=== PATIENT | male | born 1965 | race Caucasian/White ===

== ENCOUNTER → 2016-05-25 | Outpatient (CLI) | payer MEDICARE, BC ==
[~2016-05-25] MED LIST: ABILIFY 10MG TA10 MG PO; AMLODIPINE5 MG PO; ATIVAN0.5 MG PO; CITALOPRAM40 MG PO; CYMBALTA; LISINOPRIL; LISINOPRIL40 MG PO; LOPRESSOR 550 MG/TAB PO; OMEPRAZOLE D/R20 MG PO; PRILOSEC 20MG20 MG PO; TOPROL XL 25MG25 MG PO; ULTRAM50 M1 PO; VIIBRYD20 MG PO
[2016-05-25 16:27] VITALS: BP 145/91
== END ==
LOC: AMSURD 15:54
DX: Z01.818 Encounter for other preprocedural examination (principal); I10 Essential (primary) hypertension; M17.12 Unilateral primary osteoarthritis, left knee

== ENCOUNTER → 2016-06-09 | Outpatient (CLI) | payer MEDICARE, BC ==
[2016-06-09] VITALS (12 sets, daily range): BP systolic 151–167; BP diastolic 95–109
--- NOTE | 2016-06-09 13:04 | NUR ---
Gabe Lawrence APRN at bedside.
== END ==
LOC: RAD 08:18 → AMSURD 08:18
DX: R06.02 Shortness of breath (principal)
CPT/HCPCS: J2060

== ENCOUNTER 2016-10-20 14:00 | Outpatient (RCR) | payer MEDICARE, BC ==
[2016-06-09 13:15] VITALS: BP 162/95
== END 2016-11-05 09:08 | disposition home or self-care (01) ==
LOC: PT 14:00
DX: M17.12 Unilateral primary osteoarthritis, left knee (principal)

== ENCOUNTER → 2016-10-23 | Outpatient (CLI) | payer MEDICARE, BC ==
[2016-06-09 13:15] VITALS: BP 162/95
== END ==
LOC: RAD 09:57
DX: M79.662 Pain in left lower leg (principal); Z98.890 Other specified postprocedural states; I97.89 Other postprocedural complications and disorders of the circulatory system, not elsewhere classified; Y83.9 Surgical procedure, unspecified as the cause of abnormal reaction of the patient, or of later complication, without mention of misadventure at the time of the procedure

== ENCOUNTER → 2017-10-12 | Outpatient (CLI) | payer MEDICARE, BC ==
[2016-06-09 13:15] VITALS: BP 162/95
[2017-10-12 13:20] LABS: URINE APPEARANCE CLEAR; URINE BILIRUBIN NEGATIVE (NEGATIVE); URINE BLOOD NEGATIVE (NEGATIVE); URINE COLOR YELLOW; URINE GLUCOSE NEGATIVE (NEGATIVE); URINE KETONE NEGATIVE (NEGATIVE); URINE LEUKOCYTE ESTERASE NEGATIVE (NEGATIVE); URINE MUCUS PRESENT (NOT PRESENT); URINE NITRATE NEGATIVE (NEGATIVE); URINE PROTEIN(semi-quant) TRACE mg/dL (NEGATIVE); URINE UROBILINOGEN NORMAL (NORMAL)
== END ==
LOC: LAB 12:03
PROVIDERS: Nurse Practitioner Family
DX: R30.0 Dysuria (principal)

== ENCOUNTER → 2017-10-18 | Outpatient (CLI) | payer MEDICARE, BC ==
[2016-06-09 13:15] VITALS: BP 162/95
== END ==
LOC: LAB 11:52
PROVIDERS: Physician Assistant
DX: R53.83 Other fatigue (principal); R63.5 Abnormal weight gain

== ENCOUNTER → 2017-10-27 | Outpatient (CLI) | payer MEDICARE, BC ==
[2016-06-09 13:15] VITALS: BP 162/95
== END ==
LOC: LAB 08:59
DX: J02.9 Acute pharyngitis, unspecified (principal)

== ENCOUNTER → 2017-12-01 | Outpatient (CLI) | payer MEDICARE, BC ==
[2016-06-09 13:15] VITALS: BP 162/95
== END ==
LOC: LAB 12:25
DX: R73.9 Hyperglycemia, unspecified (principal)

== ENCOUNTER 2017-12-09 13:00 | Outpatient (RCR) | payer MEDICARE, BC ==
[2016-06-09 13:15] VITALS: BP 162/95
== END 2017-12-09 13:30 | disposition home or self-care (01) ==
LOC: PT 13:00
DX: R29.898 Other symptoms and signs involving the musculoskeletal system (principal); M25.562 Pain in left knee; Z96.652 Presence of left artificial knee joint
CPT/HCPCS: G8978-GP; G8979-GP

== ENCOUNTER → 2018-02-16 | Outpatient (CLI) | payer MEDICARE, BC ==
[2016-06-09 13:15] VITALS: BP 162/95
== END ==
LOC: RAD 12:29
DX: M47.816 Spondylosis without myelopathy or radiculopathy, lumbar region (principal)

== ENCOUNTER 2018-04-12 08:48 | Emergency (ER) | payer MEDICARE, BC ==
[~2018-04-12] VITALS: Ht 182.9 cm; Wt 136.4 kg
[~2018-04-12 08:48] MED LIST changes: +OMEPRAZOLE40 MG PO; -PRILOSEC 20MG20 MG PO
[2018-04-12 09:24] LABS: EOS # 0.2 (0.04-0.40); EOS % 1.6 % (0.0-4.0); HEMATOCRIT 52.6 % (42.0-52.0); LYMPH# 1.7 (1.50-4.00); MEAN CELL VOLUME 89 fl (78-100); MEAN CORPUSCULAR HEMOGLOBIN 29 pg (27-31); MEAN CORPUSCULAR HGB CONC 32 g/dL (33-37); MEAN PLATELET VOLUME 10.1 fl (7.4-10.4); MONO # 0.8 (0.20-0.80); NEU # 6.7 (1.40-6.50); PLATELET COUNT 187 K/mm3 (130-400); RED BLOOD COUNT 5.94 M/mm3 (4.20-5.60); RED CELL DISTRIBUTION WIDTH 16.1 % (11.5-14.5); WHITE BLOOD COUNT 9.4 K/mm3 (4.8-10.8)
[2018-04-12] MEDS ORDERED: ZOFRAN ODT4 MG PO (09:31)
[2018-04-12] MEDS ORDERED: HYGROTON 2525 MG/TAB PO (09:32)
[2018-04-12] MEDS ORDERED: ZOLPIDEM TART10 MG PO (09:32)
[2018-04-12] MEDS ORDERED: PROVENTIL0.09 MG/A1 IH (09:33)
[2018-04-12] MEDS ORDERED: FLONASE ALLERG9.9 ML NS (09:33)
[2018-04-12] MEDS ORDERED: XYOSTED100 MG/0.5 IM (09:34)
[2018-04-12] MEDS ORDERED: MIRALAX17 GM PO (09:37)
[2018-04-12 09:43] LABS: ALBUMIN 4.7 g/dL (3.5-5.0); CALCIUM 10.9 mg/dL (8.4-10.2); POTASSIUM 4.3 mmol/L (3.6-5.0); TOTAL BILIRUBIN 0.7 mg/dL (0.2-1.3); TOTAL PROTEIN 8.1 g/dL (6.3-8.2)
[2018-04-12 11:04] VITALS: BP 166/123
[2018-04-12] MEDS ORDERED: REGLAN10 M2 PO (11:04)
[2018-04-12] MEDS ORDERED: MIRALAX119 GM PO (11:04)
[2018-04-12] MEDS ORDERED: PREDNISONE20 M1 PO (11:04)
== END 2018-04-12 11:08 | disposition home or self-care (01) ==
LOC: ED 08:48
PROVIDERS: Nurse Practitioner Primary Care
DX: J34.89 Other specified disorders of nose and nasal sinuses (principal); R11.2 Nausea with vomiting, unspecified; K59.00 Constipation, unspecified; I10 Essential (primary) hypertension; F41.9 Anxiety disorder, unspecified; F32.9 Major depressive disorder, single episode, unspecified; F40.10 Social phobia, unspecified; K21.9 Gastro-esophageal reflux disease without esophagitis; Z90.49 Acquired absence of other specified parts of digestive tract; Z98.52 Vasectomy status
CPT/HCPCS: J2550; J2765; J7030

== ENCOUNTER → 2018-07-29 | Outpatient (CLI) | payer MEDICARE, BC ==
[~2018-07-29] MED LIST changes: +FLONASE ALLERG9.9 ML NS; +HYGROTON 2525 MG/TAB PO; +MIRALAX119 GM PO; +MIRALAX17 GM PO; +PREDNISONE20 M1 PO; +PROVENTIL0.09 MG/A1 IH; +REGLAN10 M2 PO; +XYOSTED100 MG/0.5 IM; +ZOFRAN ODT4 MG PO; +ZOLPIDEM TART10 MG PO
== END ==
LOC: LAB 10:26
DX: H53.9 Unspecified visual disturbance (principal); Z86.39 Personal history of other endocrine, nutritional and metabolic disease

== ENCOUNTER → 2018-09-19 | Outpatient (CLI) | payer MEDICARE, BC ==
[~2018-09-19] VITALS: Ht 182.9 cm; Wt 144.1 kg
[2018-09-19 11:37] LABS: ALBUMIN 4.1 g/dL (3.5-5.0); POTASSIUM 4.3 mmol/L (3.5-5.1)
[2018-09-19 11:38] LABS: CALCIUM 9.1 mg/dL (8.3-10.5)
[2018-09-19 11:40] LABS: PROTHROMBIN TIME 10.4 SECONDS (9.0-12.0); TOTAL PROTEIN 7.3 g/dL (6.4-8.3)
[2018-09-19 11:41] LABS: TOTAL BILIRUBIN 0.8 mg/dL (0.2-1.2)
[2018-09-19 11:45] LABS: URINE APPEARANCE CLEAR; URINE BILIRUBIN NEGATIVE (NEGATIVE); URINE BLOOD NEGATIVE (NEGATIVE); URINE COLOR YELLOW; URINE GLUCOSE NEGATIVE (NEGATIVE); URINE KETONE NEGATIVE (NEGATIVE); URINE LEUKOCYTE ESTERASE NEGATIVE (NEGATIVE); URINE MUCUS PRESENT (NOT PRESENT); URINE NITRATE NEGATIVE (NEGATIVE); URINE PROTEIN(semi-quant) 1+ mg/dL (NEGATIVE); URINE UROBILINOGEN NORMAL (NORMAL)
[2018-09-19 11:47] VITALS: BP 138/57
[2018-09-19 11:48] LABS: EOS # 0.2 (0.04-0.40); EOS % 2.1 % (0.0-4.0); HEMATOCRIT 52.8 % (42.0-52.0); HEMOGLOBIN 16.3 g/dL (13.5-18.0); LYMPH# 1.9 (1.50-4.00); MEAN CELL VOLUME 96 fl (78-100); MEAN CORPUSCULAR HEMOGLOBIN 30 pg (27-31); MEAN CORPUSCULAR HGB CONC 31 g/dL (33-37); MEAN PLATELET VOLUME 10.3 fl (7.4-10.4); NEU # 5.4 (1.40-6.50); PLATELET COUNT 161 K/mm3 (130-400); RED BLOOD COUNT 5.51 M/mm3 (4.20-5.60); RED CELL DISTRIBUTION WIDTH 16.5 % (11.5-14.5); WHITE BLOOD COUNT 8.5 K/mm3 (4.8-10.8)
== END ==
LOC: AMSURD 11:10
PROVIDERS: Family Medicine
DX: Z01.818 Encounter for other preprocedural examination (principal); J98.11 Atelectasis

== ENCOUNTER → 2018-12-09 | Outpatient (CLI) | payer MEDICARE, BC ==
[~2018-12-09] VITALS: Ht 182.9 cm; Wt 144.1 kg
[2018-12-09 11:21] LABS: EOS # 0.2 (0.04-0.40); EOS % 1.5 % (0.0-4.0); HEMOGLOBIN 16.5 g/dL (13.5-18.0); LYMPH# 1.7 (1.50-4.00); MEAN CELL VOLUME 92 fl (78-100); MEAN CORPUSCULAR HEMOGLOBIN 28 pg (27-31); MEAN CORPUSCULAR HGB CONC 31 g/dL (33-37); MEAN PLATELET VOLUME 10.1 fl (7.4-10.4); MONO # 1.1 (0.20-0.80); NEU # 8.1 (1.40-6.50); PLATELET COUNT 159 K/mm3 (130-400); RED BLOOD COUNT 5.85 M/mm3 (4.20-5.60); RED CELL DISTRIBUTION WIDTH 16.4 % (11.5-14.5); WHITE BLOOD COUNT 11.1 K/mm3 (4.8-10.8)
[2018-12-09 11:28] LABS: POTASSIUM 4.3 mmol/L (3.5-5.1)
[2018-12-09 11:29] LABS: CALCIUM 9.6 mg/dL (8.3-10.5)
[2018-12-09 11:30] LABS: TOTAL PROTEIN 6.7 g/dL (6.4-8.3)
[2018-12-09 11:31] LABS: PROTHROMBIN TIME 10.4 SECONDS (9.0-12.0)
[2018-12-09 11:32] LABS: TOTAL BILIRUBIN 0.7 mg/dL (0.2-1.2)
[2018-12-09 11:39] VITALS: BP 143/80
[2018-12-09 11:40] LABS: URINE APPEARANCE CLEAR; URINE BILIRUBIN NEGATIVE (NEGATIVE); URINE BLOOD NEGATIVE (NEGATIVE); URINE COLOR YELLOW; URINE GLUCOSE NEGATIVE (NEGATIVE); URINE KETONE NEGATIVE (NEGATIVE); URINE LEUKOCYTE ESTERASE NEGATIVE (NEGATIVE); URINE MUCUS PRESENT (NOT PRESENT); URINE NITRATE NEGATIVE (NEGATIVE); URINE PROTEIN(semi-quant) TRACE mg/dL (NEGATIVE); URINE UROBILINOGEN NORMAL (NORMAL); URINE WBC 0-1 /hpf (0-3)
== END ==
LOC: RAD 10:56 → LAB 10:56
PROVIDERS: Family Medicine
DX: Z01.818 Encounter for other preprocedural examination (principal); J98.11 Atelectasis; J98.6 Disorders of diaphragm

== ENCOUNTER → 2019-01-27 14:00 | Outpatient (RCR) | payer MEDICARE, BC ==
[2018-12-09 11:39] VITALS: BP 143/80
== END | disposition still patient (30) ==
LOC: PT 10-03 13:00
DX: M25.561 Pain in right knee (principal); Z96.652 Presence of left artificial knee joint

== ENCOUNTER 2019-04-05 10:34 | Emergency (ER) | payer MEDICARE, BC ==
[~2019-04-05] VITALS: Ht 182.9 cm; Wt 127.0 kg
[2019-04-05] MEDS ORDERED: PERCOCET 325 MG1 TA2 PO (12:41)
[2019-04-05] MEDS ORDERED: CYCLOBENZAPRINE10 M1 PO (12:41)
[2019-04-05] MEDS ORDERED: FLUTICASON0.05 MG/AC NS (12:49)
[2019-04-05] MEDS ORDERED: ZOFRAN4 M2 PO (12:50)
[2019-04-05] MEDS ORDERED: VIIBRYD40 MG PO (12:51)
[2019-04-05] MEDS ORDERED: ASPIR-TRIN325 M1 PO (12:51)
[2019-04-05] MEDS ORDERED: NOVAPLUS DE200 MG/ML IM (12:52)
[2019-04-05 13:01] VITALS: BP 115/79
== END 2019-04-05 12:55 | disposition home or self-care (01) ==
LOC: ED 10:34
DX: M54.5 Low back pain (principal); G89.29 Other chronic pain; F32.9 Major depressive disorder, single episode, unspecified; F41.9 Anxiety disorder, unspecified; F17.210 Nicotine dependence, cigarettes, uncomplicated; Z79.891 Long term (current) use of opiate analgesic; Z90.49 Acquired absence of other specified parts of digestive tract; Z96.652 Presence of left artificial knee joint
CPT/HCPCS: J1885; J2360

== ENCOUNTER → 2019-07-28 | Outpatient (CLI) | payer MEDICARE, BC ==
[~2019-07-28] MED LIST changes: +ASPIR-TRIN325 M1 PO; +CYCLOBENZAPRINE10 M1 PO; +FLUTICASON0.05 MG/AC NS; +NOVAPLUS DE200 MG/ML IM; +PERCOCET 325 MG1 TA2 PO; +VIIBRYD40 MG PO; +ZOFRAN4 M2 PO
[2019-07-28 08:05] LABS: HEMATOCRIT 52.8 % (42.0-52.0); HEMOGLOBIN 17.4 g/dL (13.5-18.0); MEAN PLATELET VOLUME 10.4 fl (7.4-10.4); RED BLOOD COUNT 6.05 M/mm3 (4.20-5.60); RED CELL DISTRIBUTION WIDTH 15.5 % (11.5-14.5); WHITE BLOOD COUNT 9.2 K/mm3 (4.8-10.8)
== END ==
LOC: LAB 07:48
PROVIDERS: Family Medicine
DX: E29.1 Testicular hypofunction (principal); R53.83 Other fatigue; R35.1 Nocturia

== ENCOUNTER → 2020-04-02 | Outpatient (CLI) | payer MEDICARE, BC ==
[2020-04-02 09:52] LABS: HEMATOCRIT 54.5 % (42.0-52.0); HEMOGLOBIN 17.8 g/dL (13.5-18.0); MEAN PLATELET VOLUME 10.6 fl (7.4-10.4); RED BLOOD COUNT 5.77 M/mm3 (4.20-5.60); RED CELL DISTRIBUTION WIDTH 14.9 % (11.5-14.5); WHITE BLOOD COUNT 8.2 K/mm3 (4.8-10.8)
== END ==
LOC: LAB 09:19
PROVIDERS: Urology
DX: E29.1 Testicular hypofunction (principal); R35.1 Nocturia

== ENCOUNTER 2020-10-20 13:35 | Emergency (ER) | payer MEDICARE, BC ==
[~2020-10-20] VITALS: Ht 182.9 cm; Wt 126.7 kg
[2020-10-20 14:28] LABS: BASO # 0.02 (0.02-0.10); EOS # 0.06 (0.04-0.40); EOS % 0.6 % (0.0-4.0); HEMATOCRIT 52.2 % (42.0-52.0); HEMOGLOBIN 18.4 g/dL (13.5-18.0); LYMPH# 1.17 (1.50-4.00); MEAN CELL VOLUME 91 fl (78-100); MEAN CORPUSCULAR HEMOGLOBIN 32 pg (27-31); MEAN CORPUSCULAR HGB CONC 35 g/dL (33-37); MEAN PLATELET VOLUME 9.5 fl (7.4-10.4); MONO # 0.69 (0.20-0.80); NEU # 8.04 (1.40-6.50); PLATELET COUNT 149 K/mm3 (130-400); RED BLOOD COUNT 5.72 M/mm3 (4.20-5.60); RED CELL DISTRIBUTION WIDTH 13.5 % (11.5-14.5)
[2020-10-20 14:46] LABS: ALBUMIN 4.2 g/dL (3.5-5.0); POTASSIUM 3.2 mmol/L (3.5-5.1)
[2020-10-20 14:47] LABS: CALCIUM 10.1 mg/dL (8.3-10.5)
[2020-10-20 14:48] LABS: TOTAL PROTEIN 7.4 g/dL (6.4-8.3)
[2020-10-20 14:50] LABS: TOTAL BILIRUBIN 1.3 mg/dL (0.2-1.2)
[2020-10-20] MEDS ORDERED: POTASSIUM CHLO20 ME4 PO (18:56)
[2020-10-20] MEDS ORDERED: LORAZEPAM0.5 M1 PO (18:56)
[2020-10-20 19:42] VITALS: BP 115/57
== END 2020-10-20 19:42 | disposition home or self-care (01) ==
LOC: ED 13:35
PROVIDERS: Family Medicine
DX: F41.9 Anxiety disorder, unspecified (principal); K59.00 Constipation, unspecified; E87.6 Hypokalemia; D58.2 Other hemoglobinopathies; I10 Essential (primary) hypertension; K21.9 Gastro-esophageal reflux disease without esophagitis; F32.9 Major depressive disorder, single episode, unspecified; F17.210 Nicotine dependence, cigarettes, uncomplicated; Z79.899 Other long term (current) drug therapy
CPT/HCPCS: J2060; J3480; J3490

== ENCOUNTER 2020-10-25 21:45 | Emergency (ER) | payer MEDICARE, BC ==
[~2020-10-25] VITALS: Ht 182.9 cm; Wt 128.9 kg
[~2020-10-25 21:45] MED LIST changes: +LORAZEPAM0.5 M1 PO; +POTASSIUM CHLO20 ME4 PO
[2020-10-25] MEDS ORDERED: FLUOROMETHOLONE5 M1 (22:19)
[2020-10-25] MEDS ORDERED: AUGMENTIN 500-1 EACH PO (22:21)
[2020-10-25] MEDS ORDERED: FLUCONAZOLE100 MG PO (22:22)
[2020-10-25] MEDS ORDERED: TESTOSTERO200 MG/1 M IM (22:24)
[2020-10-25 22:54] LABS: HEMOGLOBIN 17.2 g/dL (13.5-18.0); MEAN CELL VOLUME 86 fl (78-100); MEAN CORPUSCULAR HEMOGLOBIN 32 pg (27-31); MEAN CORPUSCULAR HGB CONC 37 g/dL (33-37); PLATELET COUNT 205 K/mm3 (130-400); RED BLOOD COUNT 5.34 M/mm3 (4.20-5.60); WHITE BLOOD COUNT 18.2 K/mm3 (4.8-10.8)
[2020-10-25 23:03] LABS: BAND 3 % (0-10); LYMPHOCYTE 5 % (20-51); MONOCYTE 10 % (3-10); NEUTROPHILS 82 % (42-75)
[2020-10-25 23:04] LABS: ALBUMIN 4.3 g/dL (3.5-5.0); POTASSIUM 3.1 mmol/L (3.5-5.1)
[2020-10-25 23:05] LABS: CALCIUM 10.1 mg/dL (8.3-10.5)
[2020-10-25 23:07] LABS: GLUCOSE 156 mg/dL (75-110); TOTAL PROTEIN 7.4 g/dL (6.4-8.3)
[2020-10-25 23:08] LABS: CARBON DIOXIDE 20 mmol/L (22-29); TOTAL BILIRUBIN 1.3 mg/dL (0.2-1.2)
[2020-10-25 23:12] LABS: AST-SGOT 45 U/L (5-34)
[2020-10-25 23:13] LABS: ALT/SGPT 36 U/L (0-55)
[2020-10-25 23:29] LABS: ALCOHOL IN-HOUSE < 10 mg/dL (<10); SODIUM 117 mmol/L (136-145); TROPONIN-I < 0.03 ng/mL (<0.030)
[2020-10-26 00:10] LABS: MAGNESIUM 1.62 mg/dL (1.60-2.60)
[2020-10-26 00:39] LABS: URINE APPEARANCE CLEAR; URINE BILIRUBIN NEGATIVE (NEGATIVE); URINE BLOOD 50 ery/uL (NEGATIVE); URINE COLOR YELLOW; URINE GLUCOSE 50 mg/dL mg/dL (NEGATIVE); URINE KETONE 3+ (NEGATIVE); URINE LEUKOCYTE ESTERASE NEGATIVE (NEGATIVE); URINE MUCUS PRESENT (NOT PRESENT); URINE NITRATE NEGATIVE (NEGATIVE); URINE PROTEIN(semi-quant) 1+ mg/dL (NEGATIVE); URINE UROBILINOGEN NORMAL (NORMAL)
[2020-10-26 01:49] VITALS: BP 148/75
== END 2020-10-26 01:49 | disposition short-term general hospital (02) ==
LOC: ED 21:45
PROVIDERS: Family Medicine
DX: F41.1 Generalized anxiety disorder (principal); F43.0 Acute stress reaction; K59.00 Constipation, unspecified; E87.6 Hypokalemia; D58.2 Other hemoglobinopathies; G40.309 Generalized idiopathic epilepsy and epileptic syndromes, not intractable, without status epilepticus; I10 Essential (primary) hypertension; F32.9 Major depressive disorder, single episode, unspecified; F17.210 Nicotine dependence, cigarettes, uncomplicated; Z79.899 Other long term (current) drug therapy; Z20.822 Contact with and (suspected) exposure to COVID-19
CPT/HCPCS: J7030; J7131

== ENCOUNTER 2020-10-30 19:30 | Inpatient (IN) | payer MEDICARE, BC ==
[~2020-10-30] VITALS: Ht 182.9 cm; Wt 123.5 kg
[~2020-10-30 19:30] MED LIST changes: +AUGMENTIN 500-1 EACH PO; +FLUCONAZOLE100 MG PO; +FLUOROMETHOLONE5 M1; +TESTOSTERO200 MG/1 M IM
[2020-10-30 19:40] VITALS: BP 112/61
[2020-10-30] MEDS ORDERED: ATIVAN0.5 MG PO (20:31)
[2020-10-30 20:59] LABS: URINE APPEARANCE CLEAR; URINE BILIRUBIN NEGATIVE (NEGATIVE); URINE BLOOD NEGATIVE (NEGATIVE); URINE COLOR YELLOW; URINE GLUCOSE NEGATIVE (NEGATIVE); URINE KETONE NEGATIVE (NEGATIVE); URINE LEUKOCYTE ESTERASE NEGATIVE (NEGATIVE); URINE MUCUS PRESENT (NOT PRESENT); URINE NITRATE NEGATIVE (NEGATIVE); URINE PROTEIN(semi-quant) TRACE mg/dL (NEGATIVE); URINE UROBILINOGEN NORMAL (NORMAL)
[2020-10-31 05:25] VITALS: BP 126/78
[2020-10-31 05:51] VITALS: BP 114/74
[2020-10-31 07:25] LABS: BASO # 0.07 (0.02-0.10); EOS # 0.47 (0.04-0.40); EOS % 5.5 % (0.0-4.0); HEMATOCRIT 47.1 % (42.0-52.0); LYMPH# 1.94 (1.50-4.00); MEAN CELL VOLUME 95 fl (78-100); MEAN CORPUSCULAR HEMOGLOBIN 32 pg (27-31); MEAN CORPUSCULAR HGB CONC 34 g/dL (33-37); MEAN PLATELET VOLUME 9.2 fl (7.4-10.4); MONO # 1.01 (0.20-0.80); NEU # 4.94 (1.40-6.50); PLATELET COUNT 195 K/mm3 (130-400); RED BLOOD COUNT 4.96 M/mm3 (4.20-5.60); RED CELL DISTRIBUTION WIDTH 13.5 % (11.5-14.5); WHITE BLOOD COUNT 8.5 K/mm3 (4.8-10.8)
[2020-10-31 07:45] LABS: ALBUMIN 3.7 g/dL (3.5-5.0)
[2020-10-31 07:47] LABS: CALCIUM 10.1 mg/dL (8.3-10.5)
[2020-10-31 07:48] LABS: TOTAL PROTEIN 6.6 g/dL (6.4-8.3)
[2020-10-31 07:50] LABS: TOTAL BILIRUBIN 0.7 mg/dL (0.2-1.2)
[2020-10-31 17:16] VITALS: BP 121/69
[2020-11-01 05:43] VITALS: BP 122/78
[2020-11-01 16:59] VITALS: BP 122/77
[2020-11-02 05:31] VITALS: BP 1110/65
[2020-11-02 17:18] VITALS: BP 108/68
[2020-11-03 06:23] VITALS: BP 116/73
[2020-11-03 17:43] VITALS: BP 112/74
[2020-11-04 05:34] VITALS: BP 113/65
[2020-11-04] MEDS ORDERED: ZOLPIDEM TART10 MG PO (15:04)
[2020-11-04 17:19] VITALS: BP 122/78
[2020-11-05 06:15] VITALS: BP 116/70
[2020-11-05 07:25] LABS: BASO # 0.03 (0.02-0.10); EOS # 0.17 (0.04-0.40); EOS % 2.5 % (0.0-4.0); HEMATOCRIT 47.2 % (42.0-52.0); HEMOGLOBIN 15.9 g/dL (13.5-18.0); LYMPH# 1.85 (1.50-4.00); MEAN CELL VOLUME 95 fl (78-100); MEAN CORPUSCULAR HEMOGLOBIN 32 pg (27-31); MEAN CORPUSCULAR HGB CONC 34 g/dL (33-37); MEAN PLATELET VOLUME 9.1 fl (7.4-10.4); MONO # 0.75 (0.20-0.80); NEU # 4.03 (1.40-6.50); PLATELET COUNT 161 K/mm3 (130-400); RED BLOOD COUNT 4.95 M/mm3 (4.20-5.60); RED CELL DISTRIBUTION WIDTH 13.4 % (11.5-14.5); WHITE BLOOD COUNT 6.9 K/mm3 (4.8-10.8)
[2020-11-05 07:37] LABS: ALBUMIN 3.8 g/dL (3.5-5.0); POTASSIUM 4.4 mmol/L (3.5-5.1)
[2020-11-05 07:38] LABS: CALCIUM 9.7 mg/dL (8.3-10.5)
[2020-11-05 07:39] LABS: TOTAL PROTEIN 6.8 g/dL (6.4-8.3)
[2020-11-05 07:41] LABS: TOTAL BILIRUBIN 0.8 mg/dL (0.2-1.2)
[2020-11-05 17:05] VITALS: BP 108/71
[2020-11-06 06:20] VITALS: BP 115/61
[2020-11-06] MEDS ORDERED: CLARITIN 1010 MG/TAB PO (09:12)
[2020-11-06] MEDS ORDERED: TRAMADOL 50 MG TAB PO (09:13)
[2020-11-06] MEDS ORDERED: ATIVAN0.5 MG PO (09:15)
[2020-11-07] MEDS ORDERED: CEPHALEXIN500 M2 PO (18:19)
[2020-11-07] MEDS ORDERED: ONDANSETRON ODT8 MG PO (18:50)
[2020-11-07] MEDS ORDERED: NORCO 325 MG-51 TAB PO (18:59)
== END 2020-11-06 11:25 | disposition home or self-care (01) | DRG 947 ==
LOC: MED/SURG 19:30
PROVIDERS: Family Medicine; Nurse Practitioner; ADMIT Physician Assistant
DX: R53.81 Other malaise (principal); G93.41 Metabolic encephalopathy; E87.1 Hypo-osmolality and hyponatremia; I10 Essential (primary) hypertension; K21.9 Gastro-esophageal reflux disease without esophagitis; K14.6 Glossodynia; F41.9 Anxiety disorder, unspecified; F32.9 Major depressive disorder, single episode, unspecified; G89.29 Other chronic pain; M54.9 Dorsalgia, unspecified; Z79.891 Long term (current) use of opiate analgesic; Z88.1 Allergy status to other antibiotic agents

== ENCOUNTER 2020-11-07 15:27 | Emergency (ER) | payer MEDICARE, BC ==
[~2020-11-07] VITALS: Ht 182.9 cm; Wt 120.0 kg
[~2020-11-07 15:27] MED LIST changes: +CLARITIN 1010 MG/TAB PO; +TRAMADOL 50 MG TAB PO
[2020-11-07] MEDS ORDERED: CEPHALEXIN500 M2 PO (18:19)
[2020-11-07] MEDS ORDERED: ONDANSETRON ODT8 MG PO (18:50)
[2020-11-07] MEDS ORDERED: NORCO 325 MG-51 TAB PO (18:59)
[2020-11-07 19:24] VITALS: BP 104/67
== END 2020-11-07 19:24 | disposition home or self-care (01) ==
LOC: ED 15:27
DX: S62.611A Displaced fracture of proximal phalanx of left index finger, initial encounter for closed fracture (principal); K21.9 Gastro-esophageal reflux disease without esophagitis; F41.9 Anxiety disorder, unspecified; F32.9 Major depressive disorder, single episode, unspecified; I10 Essential (primary) hypertension; Z79.899 Other long term (current) drug therapy; W32.0XXA Accidental handgun discharge, initial encounter
CPT/HCPCS: 90715; J0690

== ENCOUNTER 2020-11-21 13:55 | Emergency (ER) | payer MEDICARE, BC ==
[~2020-11-21 13:55] MED LIST changes: +CEPHALEXIN500 M2 PO; +NORCO 325 MG-51 TAB PO; +ONDANSETRON ODT8 MG PO
[2020-11-21 14:56] LABS: BASO # 0.02 (0.02-0.10); EOS % 1.2 % (0.0-4.0); HEMATOCRIT 44.1 % (42.0-52.0); HEMOGLOBIN 14.7 g/dL (13.5-18.0); LYMPH# 1.32 (1.50-4.00); MEAN CELL VOLUME 97 fl (78-100); MEAN CORPUSCULAR HEMOGLOBIN 32 pg (27-31); MEAN CORPUSCULAR HGB CONC 33 g/dL (33-37); MEAN PLATELET VOLUME 9.8 fl (7.4-10.4); MONO # 0.77 (0.20-0.80); NEU # 5.77 (1.40-6.50); PLATELET COUNT 135 K/mm3 (130-400); RED BLOOD COUNT 4.55 M/mm3 (4.20-5.60); RED CELL DISTRIBUTION WIDTH 15.3 % (11.5-14.5)
[2020-11-21 15:08] LABS: ALBUMIN 3.5 g/dL (3.5-5.0)
[2020-11-21 15:09] LABS: CALCIUM 9.7 mg/dL (8.3-10.5)
[2020-11-21 15:11] LABS: TOTAL PROTEIN 6.3 g/dL (6.4-8.3)
[2020-11-21 15:12] LABS: TOTAL BILIRUBIN 0.8 mg/dL (0.2-1.2)
[2020-11-21 15:13] LABS: URINE APPEARANCE CLEAR; URINE COLOR YELLOW
[2020-11-21 15:14] LABS: URINE BILIRUBIN NEGATIVE (NEGATIVE); URINE BLOOD NEGATIVE (NEGATIVE); URINE GLUCOSE NEGATIVE (NEGATIVE); URINE KETONE NEGATIVE (NEGATIVE); URINE LEUKOCYTE ESTERASE NEGATIVE (NEGATIVE); URINE NITRATE NEGATIVE (NEGATIVE); URINE PROTEIN(semi-quant) NEGATIVE (NEGATIVE); URINE UROBILINOGEN NORMAL (NORMAL); URINE WBC 0-1 /hpf (0-3)
[2020-11-21 18:23] LABS: LIPASE 10 U/L (8-78)
[2020-11-21] MEDS ORDERED: ONDANSETRON ODT8 MG PO (18:50)
[2020-11-21 19:32] VITALS: BP 129/92
== END 2020-11-21 19:32 | disposition home or self-care (01) ==
LOC: ED 13:55
PROVIDERS: Nurse Practitioner Family
DX: K59.00 Constipation, unspecified (principal); F41.9 Anxiety disorder, unspecified; K80.20 Calculus of gallbladder without cholecystitis without obstruction; K29.70 Gastritis, unspecified, without bleeding; I10 Essential (primary) hypertension; K21.9 Gastro-esophageal reflux disease without esophagitis; F32.9 Major depressive disorder, single episode, unspecified; F17.210 Nicotine dependence, cigarettes, uncomplicated; Z79.899 Other long term (current) drug therapy
CPT/HCPCS: C9113; J1885; J2405; J7030

== ENCOUNTER → 2020-11-22 | Outpatient (CLI) | payer MEDICARE, BC | LOC: RAD 07:58 | DX: K80.20 Calculus of gallbladder without cholecystitis without obstruction (principal) ==

== ENCOUNTER → 2020-11-27 | Outpatient (CLI) | payer MEDICARE, BC ==
[2020-11-27 10:05] LABS: HEMOGLOBIN 15.7 g/dL (13.5-18.0); MEAN PLATELET VOLUME 10.3 fl (7.4-10.4); RED BLOOD COUNT 4.9 M/mm3 (4.20-5.60); RED CELL DISTRIBUTION WIDTH 15.7 % (11.5-14.5); WHITE BLOOD COUNT 6.5 K/mm3 (4.8-10.8)
== END ==
LOC: LAB 08:31
PROVIDERS: Urology
DX: R35.1 Nocturia (principal); E29.1 Testicular hypofunction

== ENCOUNTER → 2020-12-25 | Outpatient (CLI) | payer MEDICARE, BC ==
[2020-12-25 09:07] LABS: HEMATOCRIT 57.6 % (42.0-52.0); HEMOGLOBIN 18.4 g/dL (13.5-18.0); RED BLOOD COUNT 5.87 M/mm3 (4.20-5.60); RED CELL DISTRIBUTION WIDTH 14.6 % (11.5-14.5); WHITE BLOOD COUNT 8.9 K/mm3 (4.8-10.8)
== END ==
LOC: LAB 08:45
PROVIDERS: Urology
DX: E29.1 Testicular hypofunction (principal); R35.1 Nocturia

== ENCOUNTER → 2021-08-12 | Outpatient (CLI) | payer MEDICARE, BC ==
[2021-08-12 09:49] LABS: BASO # 0.03 K/mm3 (0.02-0.10); EOS # 0.28 K/mm3 (0.04-0.40); EOS % 3.3 % (0.0-4.0); HEMATOCRIT 59.9 % (42.0-52.0); HEMOGLOBIN 19.5 g/dL (13.5-18.0); LYMPH# 1.43 K/mm3 (1.50-4.00); MEAN CELL VOLUME 96 fl (78-100); MEAN CORPUSCULAR HEMOGLOBIN 31 pg (27-31); MEAN CORPUSCULAR HGB CONC 33 g/dL (33-37); MEAN PLATELET VOLUME 10.2 fl (7.4-10.4); MONO # 0.67 K/mm3 (0.20-0.80); NEU # 6.05 K/mm3 (1.40-6.50); PLATELET COUNT 130 K/mm3 (130-400); RED BLOOD COUNT 6.25 M/mm3 (4.20-5.60); WHITE BLOOD COUNT 8.5 K/mm3 (4.8-10.8)
== END ==
LOC: LAB 09:21
PROVIDERS: Urology
DX: E29.1 Testicular hypofunction (principal); R35.1 Nocturia

== ENCOUNTER → 2021-12-30 | Outpatient (CLI) | payer MEDICARE, BC ==
[2021-12-30 08:15] LABS: HEMATOCRIT 57.9 % (42.0-52.0); HEMOGLOBIN 19.2 g/dL (13.5-18.0); MEAN PLATELET VOLUME 10.2 fl (7.4-10.4); RED BLOOD COUNT 6.01 M/mm3 (4.20-5.60); RED CELL DISTRIBUTION WIDTH 14.5 % (11.5-14.5); WHITE BLOOD COUNT 11.5 K/mm3 (4.8-10.8)
== END ==
LOC: LAB 08:01
PROVIDERS: Urology
DX: E29.1 Testicular hypofunction (principal); R53.81 Other malaise; R35.1 Nocturia

== ENCOUNTER → 2023-04-01 | Outpatient (CLI) | payer MEDICARE, BC ==
[~2023-04-01] MED LIST changes: +ALPRAZOLAM0.5 MG PO; +GABAPENTIN TAB600 MG PO; +SERTRALINE HYD100 MG PO
== END ==
LOC: LAB 08:48
DX: E29.1 Testicular hypofunction (principal); R53.83 Other fatigue; R35.1 Nocturia

== ENCOUNTER → 2023-08-19 | Outpatient (CLI) | payer MEDICARE, BC | LOC: RAD 12:58 | DX: J32.0 Chronic maxillary sinusitis (principal) ==

== ENCOUNTER → 2023-09-16 | Outpatient (CLI) | payer MEDICARE, BC | LOC: RAD 09:33 | DX: J32.0 Chronic maxillary sinusitis (principal) ==

== ENCOUNTER → 2023-10-06 | Outpatient (CLI) | payer MEDICARE, BC ==
[2023-10-06 11:58] LABS: ALBUMIN 4.1 g/dL (3.5-5.0)
[2023-10-06 12:00] LABS: CALCIUM 9.7 mg/dL (8.3-10.5)
[2023-10-06 12:01] LABS: TOTAL PROTEIN 7.3 g/dL (6.4-8.3)
[2023-10-06 12:03] LABS: TOTAL BILIRUBIN 0.4 mg/dL (0.2-1.2)
== END ==
LOC: LAB 11:39
PROVIDERS: Nurse Practitioner
DX: D75.1 Secondary polycythemia (principal)

== ENCOUNTER → 2023-10-28 | Outpatient (CLI) | payer MEDICARE, BC ==
[~2023-10-28] VITALS: Ht 182.9 cm; Wt 119.8 kg
[~2023-10-28] MED LIST changes: +NS 500 ML IV SCH
[2023-10-28 10:37] VITALS: BP 171/97
[2023-10-28 10:53] LABS: HEMOGLOBIN 17.4 g/dL (13.5-18.0)
[2023-10-28 11:33] VITALS: BP 169/83
== END ==
LOC: LAB 10:05
PROVIDERS: Nurse Practitioner
DX: D75.1 Secondary polycythemia (principal)
CPT/HCPCS: J7040

== ENCOUNTER 2023-11-29 12:14 | Emergency (ER) | payer MEDICARE, BC ==
[~2023-11-29] VITALS: Ht 182.9 cm; Wt 127.0 kg
[~2023-11-29 12:14] MED LIST changes: -NS 500 ML IV SCH
[2023-11-29 12:42] LABS: BASO # 0.04 K/mm3 (0.02-0.10); EOS # 0.15 K/mm3 (0.04-0.40); EOS % 1.6 % (0.0-4.0); HEMATOCRIT 55.8 % (42.0-52.0); HEMOGLOBIN 18.6 g/dL (13.5-18.0); LYMPH# 1.66 K/mm3 (1.50-4.00); MEAN CELL VOLUME 94 fl (78-100); MEAN CORPUSCULAR HEMOGLOBIN 31 pg (27-31); MEAN CORPUSCULAR HGB CONC 33 g/dL (33-37); MEAN PLATELET VOLUME 9.7 fl (7.4-10.4); NEU # 6.83 K/mm3 (1.40-6.50); PLATELET COUNT 197 K/mm3 (130-400); RED BLOOD COUNT 5.93 M/mm3 (4.20-5.60); RED CELL DISTRIBUTION WIDTH 13.5 % (11.5-14.5); WHITE BLOOD COUNT 9.4 K/mm3 (4.8-10.8)
[2023-11-29 12:48] LABS: ALBUMIN 4.6 g/dL (3.5-5.0)
[2023-11-29 12:50] LABS: CALCIUM 9.9 mg/dL (8.3-10.5)
[2023-11-29 12:51] LABS: TOTAL PROTEIN 7.7 g/dL (6.4-8.3)
[2023-11-29 12:53] LABS: TOTAL BILIRUBIN 0.8 mg/dL (0.2-1.2)
[2023-11-29] MEDS ORDERED: NS 500 ML IV SCH (13:30)
[2023-11-29] MEDS ORDERED: Iohexol 300 - 100 ML VIAL IV ONE (13:46)
[2023-11-29] MEDS ORDERED: REGLAN10 M2 PO (14:55)
[2023-11-29 15:09] VITALS: BP 136/85
== END 2023-11-29 15:11 | disposition home or self-care (01) ==
LOC: ED 12:14
PROVIDERS: Physician Assistant
DX: K59.03 Drug induced constipation (principal); T40.2X5A Adverse effect of other opioids, initial encounter; R11.2 Nausea with vomiting, unspecified; Z91.040 Latex allergy status
CPT/HCPCS: J2765; J7040; Q9967

== ENCOUNTER → 2023-12-28 | Outpatient (CLI) | payer MEDICARE, BC | LOC: RAD 12:08 | DX: M47.816 Spondylosis without myelopathy or radiculopathy, lumbar region (principal); M51.360 Other intervertebral disc degeneration, lumbar region with discogenic back pain only; M48.061 Spinal stenosis, lumbar region without neurogenic claudication ==

== ENCOUNTER → 2024-01-10 | Outpatient (CLI) | payer MEDICARE, BC ==
[2024-01-10 12:30] LABS: BASO # 0.03 K/mm3 (0.02-0.10); EOS # 0.53 K/mm3 (0.04-0.40); EOS % 5.6 % (0.0-4.0); HEMATOCRIT 55.6 % (42.0-52.0); HEMOGLOBIN 17.8 g/dL (13.5-18.0); LYMPH# 1.98 K/mm3 (1.50-4.00); MEAN CELL VOLUME 97 fl (78-100); MEAN CORPUSCULAR HEMOGLOBIN 31 pg (27-31); MEAN CORPUSCULAR HGB CONC 32 g/dL (33-37); MEAN PLATELET VOLUME 10.1 fl (7.4-10.4); MONO # 0.82 K/mm3 (0.20-0.80); NEU # 6.06 K/mm3 (1.40-6.50); PLATELET COUNT 135 K/mm3 (130-400); RED BLOOD COUNT 5.76 M/mm3 (4.20-5.60); RED CELL DISTRIBUTION WIDTH 16.3 % (11.5-14.5); WHITE BLOOD COUNT 9.4 K/mm3 (4.8-10.8)
[2024-01-10 12:35] LABS: ALBUMIN 4.2 g/dL (3.5-5.0)
[2024-01-10 12:36] LABS: CALCIUM 9.2 mg/dL (8.3-10.5)
[2024-01-10 12:37] LABS: TOTAL PROTEIN 7.3 g/dL (6.4-8.3)
[2024-01-10 12:39] LABS: TOTAL BILIRUBIN 0.5 mg/dL (0.2-1.2)
== END ==
LOC: LAB 12:17
PROVIDERS: Nurse Practitioner
DX: D75.1 Secondary polycythemia (principal)

== ENCOUNTER → 2024-03-09 | Outpatient (CLI) | payer MEDICARE, BC ==
[2024-03-09 13:16] LABS: BASO # 0.05 K/mm3 (0.02-0.10); EOS # 0.32 K/mm3 (0.04-0.40); EOS % 4.4 % (0.0-4.0); HEMATOCRIT 48.7 % (42.0-52.0); HEMOGLOBIN 16.2 g/dL (13.5-18.0); LYMPH# 1.32 K/mm3 (1.50-4.00); MEAN CELL VOLUME 92 fl (78-100); MEAN CORPUSCULAR HEMOGLOBIN 31 pg (27-31); MEAN CORPUSCULAR HGB CONC 33 g/dL (33-37); MEAN PLATELET VOLUME 9.9 fl (7.4-10.4); MONO # 0.34 K/mm3 (0.20-0.80); PLATELET COUNT 156 K/mm3 (130-400); RED BLOOD COUNT 5.32 M/mm3 (4.20-5.60); RED CELL DISTRIBUTION WIDTH 14.4 % (11.5-14.5); WHITE BLOOD COUNT 7.2 K/mm3 (4.8-10.8)
== END ==
LOC: LAB 12:39
PROVIDERS: Nurse Practitioner
DX: D75.1 Secondary polycythemia (principal)

== ENCOUNTER → 2024-03-21 | Day surgery (SDC) | payer MEDICARE, BC ==
[~2024-03-21] MED LIST changes: +Iohexol 300 - 10 ML VIAL IV ONE; +Lidocaine PF 2% (20 MG/ML) 2 ML VIAL IJ SCH
== END ==
LOC: WKSPAIN 03-14 16:09
DX: M47.26 Other spondylosis with radiculopathy, lumbar region (principal); I10 Essential (primary) hypertension; M54.50 Low back pain, unspecified; M79.2 Neuralgia and neuritis, unspecified; G89.29 Other chronic pain; E66.01 Morbid (severe) obesity due to excess calories; F32.A Depression, unspecified; Z79.82 Long term (current) use of aspirin

== ENCOUNTER → 2024-04-22 | Outpatient (CLI) | payer MEDICARE, BC ==
[~2024-04-22] MED LIST changes: -Iohexol 300 - 10 ML VIAL IV ONE; -Lidocaine PF 2% (20 MG/ML) 2 ML VIAL IJ SCH
[2024-04-22 12:16] LABS: BASO # 0.05 K/mm3 (0.02-0.10); EOS # 0.26 K/mm3 (0.04-0.40); HEMATOCRIT 55.4 % (42.0-52.0); HEMOGLOBIN 17.6 g/dL (13.5-18.0); LYMPH# 1.98 K/mm3 (1.50-4.00); MEAN CELL VOLUME 93 fl (78-100); MEAN CORPUSCULAR HEMOGLOBIN 30 pg (27-31); MEAN CORPUSCULAR HGB CONC 32 g/dL (33-37); MEAN PLATELET VOLUME 9.9 fl (7.4-10.4); MONO # 0.69 K/mm3 (0.20-0.80); NEU # 5.55 K/mm3 (1.40-6.50); PLATELET COUNT 166 K/mm3 (130-400); RED BLOOD COUNT 5.94 M/mm3 (4.20-5.60); RED CELL DISTRIBUTION WIDTH 15.8 % (11.5-14.5); WHITE BLOOD COUNT 8.6 K/mm3 (4.8-10.8)
[2024-04-22 12:20] LABS: ALBUMIN 4.3 g/dL (3.4-4.8)
[2024-04-22 12:21] LABS: CALCIUM 9.8 mg/dL (8.3-10.5)
[2024-04-22 12:22] LABS: TOTAL PROTEIN 7.8 g/dL (6.2-8.1)
[2024-04-22 12:24] LABS: TOTAL BILIRUBIN 0.5 mg/dL (0.2-1.2)
== END ==
LOC: LAB 11:50
PROVIDERS: Nurse Practitioner
DX: D75.1 Secondary polycythemia (principal)

== ENCOUNTER 2024-05-06 18:14 | Emergency (ER) | payer MEDICARE, BC ==
[~2024-05-06] VITALS: Ht 15.2 cm; Wt 126.8 kg
[2024-05-06 18:54] LABS: BASO # 0.02 K/mm3 (0.02-0.10); EOS # 0.09 K/mm3 (0.04-0.40); EOS % 0.7 % (0.0-4.0); HEMATOCRIT 48.9 % (42.0-52.0); HEMOGLOBIN 15.8 g/dL (13.5-18.0); LYMPH# 1.66 K/mm3 (1.50-4.00); MEAN CELL VOLUME 97 fl (78-100); MEAN CORPUSCULAR HEMOGLOBIN 31 pg (27-31); MEAN CORPUSCULAR HGB CONC 32 g/dL (33-37); MEAN PLATELET VOLUME 9.9 fl (7.4-10.4); MONO # 1.13 K/mm3 (0.20-0.80); NEU # 10.51 K/mm3 (1.40-6.50); PLATELET COUNT 122 K/mm3 (130-400); RED BLOOD COUNT 5.04 M/mm3 (4.20-5.60); RED CELL DISTRIBUTION WIDTH 18.7 % (11.5-14.5); WHITE BLOOD COUNT 13.5 K/mm3 (4.8-10.8)
[2024-05-06 19:00] LABS: SODIUM 137 mmol/L (136-145)
[2024-05-06 19:01] LABS: CALCIUM 9.3 mg/dL (8.3-10.5)
[2024-05-06 19:02] LABS: GLUCOSE 186 mg/dL (75-110); TOTAL PROTEIN 7.1 g/dL (6.2-8.1)
[2024-05-06 19:03] LABS: CARBON DIOXIDE 28 mmol/L (23-31)
[2024-05-06 19:04] LABS: TOTAL BILIRUBIN 0.6 mg/dL (0.2-1.2)
[2024-05-06 19:07] LABS: AST-SGOT 16 U/L (5-34)
[2024-05-06 19:09] LABS: ALT/SGPT 23 U/L (0-55)
[2024-05-06 20:49] LABS: D-DIMER 6.68 mg/L FEU (0.15-0.50)
[2024-05-06 20:57] LABS: URINE COLOR DARK YELLOW (YELLOW)
[2024-05-06 20:58] LABS: PH-URINE 5.5 (5.0 - 8.0); URINE APPEARANCE CLOUDY (CLEAR); URINE BILIRUBIN 1+ (NEGATIVE); URINE BLOOD NEGATIVE (NEGATIVE); URINE GLUCOSE NEGATIVE (NEGATIVE); URINE KETONE NEGATIVE (NEGATIVE); URINE LEUKOCYTE ESTERASE NEGATIVE (NEGATIVE); URINE NITRATE NEGATIVE (NEGATIVE); URINE PROTEIN(semi-quant) 2+ (NEGATIVE)
[2024-05-06 20:59] LABS: URINE MUCUS PRESENT (NOT PRESENT)
[2024-05-06 21:39] LABS: TROPONIN-I < 0.030 ng/mL (0.00-0.033)
[2024-05-06] MEDS ORDERED: NS 1,000 ML IV SCH (21:45)
[2024-05-06] MEDS ORDERED: cefTRIAXone 1 G in Water For Injection,Sterile 10 ML IV ONE (21:45)
[2024-05-06] MEDS ORDERED: Iohexol 350 - 100 ML VIAL IV ONE (22:22)
[2024-05-06] MEDS ORDERED: NS 100 ML IV SCH (22:24)
[2024-05-07 00:30] VITALS: BP 155/82
== END 2024-05-07 03:15 | disposition short-term general hospital (02) ==
LOC: ED 18:14
PROVIDERS: Family Medicine
DX: J96.21 Acute and chronic respiratory failure with hypoxia (principal); J96.22 Acute and chronic respiratory failure with hypercapnia; N39.0 Urinary tract infection, site not specified; E66.01 Morbid (severe) obesity due to excess calories; F17.210 Nicotine dependence, cigarettes, uncomplicated; Z88.1 Allergy status to other antibiotic agents; Z91.040 Latex allergy status
CPT/HCPCS: J0696; J7030; Q9967

== ENCOUNTER → 2024-05-25 | Outpatient (CLI) | payer MEDICARE, BC ==
[~2024-05-25] VITALS: Ht 182.9 cm; Wt 126.8 kg
[~2024-05-25] MED LIST changes: +NS 500 ML IV ONE
[2024-05-25 15:12] VITALS: BP 152/91
[2024-05-25 15:38] LABS: HEMATOCRIT 51.1 % (42.0-52.0); HEMOGLOBIN 16.3 g/dL (13.5-18.0)
[2024-05-25 16:46] VITALS: BP 142/81
== END ==
LOC: AMSURD 14:56
PROVIDERS: Nurse Practitioner
DX: D75.1 Secondary polycythemia (principal)
CPT/HCPCS: J7040

== ENCOUNTER → 2024-05-30 | Day surgery (SDC) | payer MEDICARE, BC ==
[~2024-05-30] MED LIST changes: -NS 500 ML IV ONE
== END ==
LOC: WKSPAIN
DX: G89.29 Other chronic pain (principal); M47.896 Other spondylosis, lumbar region